=== PATIENT | male | born 1990 | race Caucasian/White ===

== ENCOUNTER 2021-11-30 19:39 | Emergency (ER) | payer SELFPAY | END 2021-11-30 22:01 | disposition home or self-care (01) | LOC: ERS 19:39 | DX: B34.9 Viral infection, unspecified (principal) | CPT/HCPCS: 93005 ==

== ENCOUNTER 2021-12-04 17:07 | Emergency (ER) | payer SELFPAY | END 2021-12-04 19:02 | disposition home or self-care (01) | LOC: ERS 17:07 | DX: R05.9 Cough, unspecified (principal); Z20.822 Contact with and (suspected) exposure to COVID-19 | CPT/HCPCS: 99283 ==